=== PATIENT | male | born 1965 | race Caucasian/White ===

== ENCOUNTER 2018-10-22 06:08 | Day surgery (SDC) | payer OTHER ==
[2018-10-22] MEDS ORDERED: ceFAZolin 2 GM/DEXTROSE 100 ML IV ONE (06:19)
[2018-10-22] MEDS ORDERED: LIDOCAINE 1% 2 ML INJ ID PRN (06:21)
[2018-10-22] MEDS ORDERED: LR 1,000 ML IV ONE (06:21)
[2018-10-22] MEDS ORDERED: BUPIVACAINE 0.25% 30 ML SDV ONE (06:35)
[2018-10-22] MEDS ORDERED: BACITRACIN 50,000 UNITS/10 ML SYR IRR ONE (06:35)
--- NOTE | 2018-10-22 06:55 | PDANEPAE ---
ANE Past Medical History - Cardiovascular History Hx Hypertension: No Hx Arrhythmias: No Hx Chest Pain: No Hx Coronary Artery / Peripheral Vascular Disease: No Hx CHF / Valvular Disease: No Hx Palpitations: No - Pulmonary History Hx COPD: No Hx Asthma/Reactive Airway Disease: No Hx Recent Upper Respiratory Infection: No Hx Oxygen in Use at Home: No Hx Sleep Apnea: No Sleep Apnea Screening Result - Last Documented: Negative - Neurologic History Hx Cerebrovascular Accident: No Hx Seizures: No Hx Dementia: No - Endocrine History Hx Diabetes: No - Renal History Hx Renal Disorders: No - Liver History Hx Hepatic Disorders: No - Neurological & Psychiatric Hx Hx Neurological and Psychiatric Disorders: No - Cancer History Hx Cancer: No - Congenital Disorder History Hx Congenital Disorders: No - GI History Hx Gastrointestinal Disorders: No - Other Health History Other Health History: NEG - Chronic Pain History Chronic Pain: No - Surgical History Prior Surgeries: NONE ANE Review of Systems Review of Systems: - Exercise capacity METS (RN): 5 METS ANE Patient History - Allergies Allergies/Adverse Reactions: No Known Allergies Allergy (Unverified 10/18/18 12:52) - Home Medications Home Medications: NK [No Known Home Meds] 10/18/18 [Last Taken Unknown] - NPO status NPO Since - Liquids (Date): 10/21/18 NPO Since - Liquids (Time): 23:00 NPO Since - Solids (Date): 10/21/18 NPO Since - Solids (Time): 19:00 - Smoking Hx Smoking Status: Former smoker - Family Anes Hx Family Hx Anesthesia Complications: NONE ANE Labs/Vital Signs - Vital Signs Blood Pressure: 119/90 Heart Rate: 84 Respiratory Rate: 16 O2 Sat (%): 96 Height: 181.61 cm Weight: 83.915 kg ANE Physical Exam - Airway Mallampati Score: Class 2 - ASA Status ASA Status: I ANE Anesthesia Plan Anesthesia Plan: general endotracheal anesthesia
[2018-10-22] MEDS ORDERED: MIDAZOLAM 2 MG/2 ML VIAL ONE (07:00)
[2018-10-22] MEDS ORDERED: PROPOFOL 200 MG/20 ML VIAL ONE (07:01)
[2018-10-22] MEDS ORDERED: fentaNYL 100 MCG/2 ML INJ ONE (07:01)
[2018-10-22] MEDS ORDERED: ROCURONIUM 50 MG/5 ML VIAL ONE (07:05)
[2018-10-22] MEDS ORDERED: ONDANSETRON 4 MG/2 ML VIAL ONE (07:05)
[2018-10-22] MEDS ORDERED: METOCLOPRAMIDE 10 MG/2 ML VIAL ONE (07:05)
[2018-10-22] MEDS ORDERED: BACITRACIN ZINC 0.5 OZ OINTTUBE TP ONE (07:13)
--- NOTE | 2018-10-22 07:14 | PDHPUP ---
History & Physical Update H&P update statement: This history and physical update is based on an assessment of the patient which was completed after admission or registration (within 24 hours), but prior to the surgery/procedure. H&P update: H&P reviewed & patient examined, no change in patient's condition since H&P completed
[2018-10-22] MEDS ORDERED: SUGAMMADEX SODIUM 200 MG/2 ML VIAL IVP ONE (08:15)
[2018-10-22] MEDS ORDERED: PROMETHAZINE HCL 25 MG/ML INJ IVP PRN (08:39)
[2018-10-22] MEDS ORDERED: NALOXONE HCL 0.4 MG/ML INJ IVP PRN (08:39)
[2018-10-22] MEDS ORDERED: HYDROmorphONE/DILAUDID 2 MG/ML INJ IVP PRN (08:39)
[2018-10-22] MEDS ORDERED: fentaNYL 100 MCG/2 ML INJ IVP PRN (08:39)
[2018-10-22] MEDS ORDERED: LR 500 ML IV PRN (08:39)
--- NOTE | 2018-10-22 08:40 | POSTANESTH ---
Post Anesthetic Evaluation Cardiovascular Status: Normal, Stable Respiratory Status: Normal, Stable Level of Consciousness/Mental Status: Can Participate in Eval Pain Control: Adequate, Prn Tx Ordered Nausea/Vomiting Control: Adequate, Prn Tx Ordered Complications Possibly Related to Anesthesia: None Noted
--- NOTE | 2018-10-22 08:44 | POSTOPPROG ---
Post Op Note Date of Operation: 10/22/18 Surgeon: Андрей De La Garza (, FACS) Anesthesia: GET(General Endotracheal) Pre-op Diagnosis: LIH Procedure: lap LIH Inf/Abcess present in the surg proc area at time of surgery?: No EBL: Minimal
[2018-10-22] MEDS ORDERED: HYDROCODONE/APAP 5/325 TAB PO PRN (08:48)
[2018-10-22] MEDS ORDERED: SENNOSIDES/DOCUSATE SODIUM TAB PO SCH (09:00)
[2018-10-22 10:36] VITALS: BP 110/78
--- NOTE | 2018-10-22 10:57 | GOP ---
[f rep st] OPERATIVE REPORT DATE OF OPERATION: 10/22/2018 SURGEON: Андрей De La Garza MD, FACS ANESTHESIA: General endotracheal. ANESTHESIOLOGIST: Dustin Roa MD. PREOPERATIVE DIAGNOSIS: Left inguinal hernia. POSTOPERATIVE DIAGNOSIS: Left inguinal hernia. PROCEDURE PERFORMED: Laparoscopic preperitoneal inguinal herniorrhaphy. FINDINGS: Direct left inguinal hernia. No evidence of right inguinal hernia. ESTIMATED BLOOD LOSS: 5 mL. DESCRIPTION OF PROCEDURE: After informed consent was obtained, the patient was brought to the operating room and placed under general anesthesia. The abdomen was prepped and draped in the usual fashion. Before proceeding, a time-out and identification of the patient was performed. Marcaine 0.25% was used to infiltrate all incision sites. A transverse incision was made below the umbilicus and carried through the skin and subcutaneous tissues. Dissection was carried out down to the midline fascia. The fascia was incised approximately 1.5 cm below the umbilical stalk and a plane of dissection was entered posterior to the left rectus muscle and anterior to left posterior rectus sheath. A balloon dissector was introduced and advanced to the pubis without resistance and it was deployed under laparoscopic visualization, deflated and removed. This was replaced with a structural balloon port and a pneumopreperitoneum established with CO2 gas to a pressure of 15 mmHg. A 0-degree scope was introduced and the preperitoneal space was visualized. The patient had a palpable left inguinal hernia and this had been marked in the preop area. The left side was dissected first as follows. Additional 5 mm ports were placed in the midline after infiltrating each site with 0.25% Marcaine. Atraumatic grasping forceps were introduced and the remainder of the preperitoneal dissection was performed. This revealed a direct left inguinal hernia. Balta ligament was identified. The spermatic cord was inspected and the peritoneum lateral to the internal ring was cleared. There was a small peritoneotomy lateral to the internal ring, but no bowel herniation. There was no evidence of indirect or femoral hernia. A 3DMax mesh was brought onto the field and passed through the camera port and positioned over the inguinal floor covering, the inguinal floor, the femoral canal, as well as the internal ring. This was secured to Balta ligament with interrupted AbsorbaTack. Subsequently, a piece of Surgi-cell was placed over the peritoneotomy to prevent bowel adhesions. The right side was dissected, peeling the peritoneum back lateral to the internal ring. There was no evidence of direct, indirect or femoral hernia on the right side. The pneumoperitoneum was evacuated. The infraumbilical fascial defect was closed with interrupted 0 Vicryl sutures. Subcutaneous tissues were closed with 3-0 Vicryl suture. Skin was closed with 4-0 Monocryl suture in a subcuticular fashion. Topical Dermabond was applied. The patient was returned to the recovery room in satisfactory condition. Needle, sponge and instrument counts were correct. COMPLICATIONS: None. /[id number]/MODL MTDD
== END 2018-10-22 10:48 | disposition home or self-care (01) ==
LOC: FSGY 06:08
PROVIDERS: ATTEND Surgery
PROC: 0YU64JZ Supplement Left Inguinal Region with Synthetic Substitute, Percutaneous Endoscopic Approach (ICD-10-PCS; principal; 2018-10-22 07:30)
DX: K40.90 Unilateral inguinal hernia, without obstruction or gangrene, not specified as recurrent (principal)
CPT/HCPCS: C1727; C1781; J0690; J2250; J2405; J2704; J2765; J3010